=== PATIENT | female | born 1945 | race Caucasian/White ===

== ENCOUNTER 2018-12-08 05:49 | Observation (INO) | payer OTHER ==
[2018-12-08] MEDS ORDERED: LIDOCAINE 1% (MDV) 20 ML INJ (06:59)
[2018-12-08] MEDS ORDERED: BUPIVACAINE 0.5% (SDV) 30 ML INJ (06:59)
[2018-12-08] MEDS ORDERED: SOD CHLORIDE 0.9% 500 ML (06:59)
[2018-12-08] MEDS ORDERED: IODIXANOL LOCM 50 ML BTL (06:59)
[2018-12-08] MEDS: CEFAZOLIN 2 GM/50 ML (PMX) 50 ML IVPB (07:00)
[2018-12-08] MEDS: LACTATED RINGER'S 1,000 ML IV* (07:00)
[2018-12-08] MEDS ORDERED: CEFAZOLIN 1 GM/50 ML (PMX) 100 ML IVPB (07:08)
[2018-12-08] MEDS ORDERED: PROPOFOL 20 ML (07:36)
[2018-12-08] MEDS ORDERED: FENTAnyl 50 MCG/ML VIAL (07:36)
[2018-12-08] MEDS ORDERED: PROPOFOL 100 ML (07:37)
[2018-12-08] MEDS ORDERED: ONDANSETRON 4 MG INJ IV (08:00)
[2018-12-08] MEDS ORDERED: FENTAnyl 50 MCG/ML VIAL IV (08:00)
[2018-12-08] MEDS ORDERED: HYDROCODONE/APAP (5/325) TAB PO (09:00)
[2018-12-08] MEDS ORDERED: GLUCOSE GEL 15 GRAM TUBE BUCCAL (11:30)
[2018-12-08] MEDS: POLYMYXIN/BACITRACIN 1L IRRIG IRR (11:30)
[2018-12-08] MEDS ORDERED: GLUCAGON 1 MG INJ IM (11:30)
[2018-12-08] MEDS ORDERED: DEXTROSE 50% 50 ML SYRINGE IV ×2 (11:30)
[2018-12-08] MEDS ORDERED: GLUCOSE GEL 15 GRAM TUBE PO ×2 (11:30)
[2018-12-08] MEDS: INSULIN ASPART [NOVOLOG] 3 ML PEN SC ×3 (13:00→21:00)
[2018-12-08] MEDS: ACCU-CHEK XX ×3 (13:00→21:00)
[2018-12-08] MEDS: CEFAZOLIN 1 GM/50 ML (PMX) 50 ML IVPB ×2 (13:53→21:51)
[2018-12-08] MEDS: LISINOPRIL 5 MG TAB PO (13:54)
[2018-12-08] MEDS: GEMFIBROZIL 600 MG TAB PO ×2 (13:54→21:51)
[2018-12-08] MEDS: MELOXICAM 15 MG TAB PO (13:55)
[2018-12-08] MEDS: DOCUSATE SODIUM 100 MG CAP PO (13:55)
[2018-12-08] MEDS: POTASSIUM CHLORIDE (SR) 8 MEQ CAP PO (13:56)
[2018-12-08] MEDS: DIGOXIN 0.125 MG TAB PO (13:56)
[2018-12-08] MEDS: ISOSORBIDE MONONITRATE(SR)60 MG TAB PO (13:57)
[2018-12-08] MEDS: CITALOPRAM 20 MG TAB PO (13:57)
[2018-12-08] MEDS: FUROSEMIDE 40 MG TAB PO (13:58)
[2018-12-08] MEDS: ATORVASTATIN 40 MG TAB PO (21:51)
[2018-12-09] MEDS: ACCU-CHEK XX ×3 (02:00→11:00)
[2018-12-09 04:37] LABS: ADD MAN DIFF? NO
[2018-12-09 04:38] LABS: WHITE BLOOD COUNT 4.6 10^3/ul (4.8-10.8)
[2018-12-09 04:38] LABS: BASOPHILS % 0.4 % (0.0-2.0); EOSINOPHILS # 0.1 10^3/ul (0.0-0.5); EOSINOPHILS % 2.4 % (0.0-7.0); HEMATOCRIT 32.2 % (37.0-47.0); LYMPHOCYTES % 21.4 % (15.0-51.0); MEAN CORPUSCULAR HEMOGLOBIN 27.2 pg (29.0-33.0); MEAN CORPUSCULAR HGB CONC 31.1 g/dl (32.0-37.0); MEAN CORPUSCULAR VOLUME 87.5 fl (82.0-101.0); MEAN PLATELET VOLUME 9.4 fl (7.4-10.4); MONOCYTE # 0.5 10^3/ul (0.3-0.9); MONOCYTES % 11.3 % (0.0-11.0); NEUTROPHIL # 2.9 10^3/ul (1.6-7.5); NEUTROPHILS % 62.1 % (39.0-77.0); PLATELET COUNT 266 10^3/UL (140-415); RED BLOOD COUNT 3.68 10^6/ul (4.20-5.40); RED CELL DISTRIBUTION WIDTH 13.9 % (11.5-14.5)
[2018-12-09 05:05] LABS: ANION GAP 4 (5-13); BLOOD UREA NITROGEN 14 mg/dl (7-20); CALCIUM 8.8 mg/dl (8.4-10.2); CARBON DIOXIDE 28 mmol/L (21-31); CHLORIDE 109 mmol/L (97-110); CREATININE 0.64 mg/dl (0.44-1.00); GLUCOSE 115 mg/dl (70-220); MAGNESIUM 2.2 mg/dl (1.7-2.5); PHOSPHORUS 3.2 mg/dl (2.5-4.9); POTASSIUM 4.2 mmol/L (3.5-5.1); SODIUM 141 mmol/L (135-144)
[2018-12-09] MEDS: CEFAZOLIN 1 GM/50 ML (PMX) 50 ML IVPB (06:10)
[2018-12-09] MEDS: INSULIN ASPART [NOVOLOG] 3 ML PEN SC ×2 (07:35→11:30)
[2018-12-09] MEDS: LISINOPRIL 5 MG TAB PO (09:59)
[2018-12-09] MEDS: MELOXICAM 15 MG TAB PO (09:59)
[2018-12-09] MEDS: GEMFIBROZIL 600 MG TAB PO (09:59)
[2018-12-09] MEDS: POTASSIUM CHLORIDE (SR) 8 MEQ CAP PO (09:59)
[2018-12-09] MEDS: LINAGLIPTIN 5 MG TABLET PO (09:59)
[2018-12-09] MEDS: CITALOPRAM 20 MG TAB PO (09:59)
[2018-12-09] MEDS: DOCUSATE SODIUM 100 MG CAP PO (09:59)
[2018-12-09] MEDS: FUROSEMIDE 40 MG TAB PO (10:00)
[2018-12-09] MEDS: ISOSORBIDE MONONITRATE(SR)60 MG TAB PO (10:00)
[2018-12-09] MEDS: DIGOXIN 0.125 MG TAB PO (13:31)
== END 2018-12-09 14:00 | disposition home or self-care (01) ==
LOC: CCL 05:49 → SDS 05:49 → CCL 08:49 → REC 08:50 → ICU 11:27
PROVIDERS: Internal Medicine Cardiovascular Disease
DX: I11.0 Hypertensive heart disease with heart failure (principal); I50.9 Heart failure, unspecified; I25.5 Ischemic cardiomyopathy; I25.10 Atherosclerotic heart disease of native coronary artery without angina pectoris; E11.9 Type 2 diabetes mellitus without complications; E78.5 Hyperlipidemia, unspecified
CPT/HCPCS: 33249; 71045; 80048; 82962; 83735; 84100; 85025; 87081; G0378